=== PATIENT | female | born 1975 | race Asian ===

== ENCOUNTER 2023-08-26 16:02 | Outpatient (AMB) | payer SELFPAY ==
[2023-08-26 16:03] VITALS: BP 110/70; PULSE 85; O2SAT 97; BMI 31.6
--- NOTE | 2023-08-26 16:03 | HO.NEPHOV_ITS ---
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 Recent urine Pro: cr was 2700 and prompted further work up All serologies were negative UA showed no protein PFSH Social History (Updated 08/26/23 @ 16:08 by Nury Good) Alcohol intake: never Patient Tobacco Use Status: Never used Tobacco Use of substances other than those prescribed or required for medical reasons: No Vital Signs 08/26/23 16:03 Height 5 ft 2 in Weight 173 lb BMI 31.6 BP 110/70 Blood Pressure Location Lt brachial Position Sitting Pulse 85 Pulse Source Pulse Oximeter Pulse Oximetry (%) 97 Oxygen Delivery Method Room Air Physical Exam Vital Signs: Last Vital Signs Pulse 85 08/26/23 16:03 BP 110/70 08/26/23 16:03 Pulse Ox 97 08/26/23 16:03 Oxygen Delivery Method Room Air 08/26/23 16:03 BMI result Body Mass Index 31.6 Awake. Comfortable. Neck is supple. Mucosa moist. Lungs bilateral scattered rhonchi. Heart S1-S2 heard no gallop. Abdomen soft. Extremities no edema. No involuntary movements. No myoclonus. 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
== END 2023-08-26 16:28 | disposition home or self-care (01) ==
PROVIDERS: PCP Internal Medicine; Visit Provider Internal Medicine Hypertension Specialist
DX: N05.9 Unspecified nephritic syndrome with unspecified morphologic changes (principal)

== ENCOUNTER → 2023-08-26 16:02 | Outpatient (BNVA) | payer SELFPAY | PROVIDERS: PCP Internal Medicine; Visit Provider Internal Medicine Hypertension Specialist | DX: N05.9 Unspecified nephritic syndrome with unspecified morphologic changes (principal) | CPT/HCPCS: 99211 ==

== ENCOUNTER 2023-08-27 12:11 | Outpatient (REF) | payer OTHER, SELFPAY ==
[2023-08-27 14:57] LABS: Creatinine Urine 18.09 mg/dL; Total Protein Urine Random < 7 mg/dL (<12)
== END 2023-08-27 12:12 | disposition home or self-care (01) ==
LOC: HO.LAB 12:11
PROVIDERS: Visit Provider Internal Medicine Hypertension Specialist
DX: N05.9 Unspecified nephritic syndrome with unspecified morphologic changes (principal)
CPT/HCPCS: 82570; 84156

== ENCOUNTER 2025-02-28 14:32 | Outpatient (AMB) | payer OTHER, SELFPAY ==
--- OUTSIDE RECORDS SUMMARY | 2021-07-04 09:15 | XMS_ITS | Continuity of Care Document ---
Author Organization [facility] Address [address] [place] [address] Phone Care Team Providers Care Content Checker Name Role Phone Sowmya Lainez MD Unavailable Unavailable Allergies, Adverse Reactions, Alerts Substance Reaction Status Criticality gabapentin pain Active No Information Medications Medication Instructions Dosage Effective Dates (start - stop) Status Comments Norvasc 5 mg tablet take 1 tablet by oral route every day 5 MG - No Longer Active lisinopril 2.5 mg tablet take 1 tablet by oral route every day 2.5 MG - No Longer Active gemfibrozil 600 mg tablet take 1 tablet by oral route 2 times every day 30 minutes before morning and evening meal 600 MG - No Longer Active Fish Oil 1,000 mg (120 mg-180 mg) capsule take 1 capsule by oral route every day 1 capsule - No Longer Active Synthroid 75 mcg tablet take 1 tablet by oral route every day 75 MCG - No Longer Active pantoprazole 40 mg tablet,delayed release take 1 tablet by oral route every day 40 MG - No Longer Active ergocalciferol (vitamin D2) 1,250 mcg (50,000 unit) capsule take 1 capsule by oral route every week 1 capsule - No Longer Active Synthroid 75 mcg tablet take 1 tablet by oral route every day 75 MCG - No Longer Active Pantoprazole Sodium 40 MG Oral Tablet Delayed Release Take 1 tablet by mouth once daily - No Longer Active Procedures Procedure Date Screening mammo bilateral 2 view study o f OFFICE/OUTPATIENT VISIT, EST 15 MIN UNLISTED PREVENTIVE SERVICE Brief communication technology-based ser vice Copayment Waived - Telehealth SPECIMEN HANDLING ROUTINE VENIPUNCTURE UNLISTED E&M SERVICE MED LIST DOCD IN [facility] RVW MEDS BY RX/DR IN [facility] OFFICE/OUTPATIENT VISIT, EST 25 MIN Copayment Waived - Annual Physical Cover ed @ 100% MED LIST DOCD IN [facility] RVW MEDS BY RX/DR IN [facility] Alcohol/subs Screening/interv 15-30mn Oc SYST BP LT 130 MM HG DIAST BP < 80 MM HG AMNT PAIN NOTED; PAIN PRSNT AMNT PAIN NOTED; NONE PRSNT OFFICE/OUTPATIENT VISIT, EST 15 MIN Copayment Responsibility A11 A8 D6 B10 PURE TONE HEARING TEST, AIR VISUAL ACUITY SCREEN GLYCATED HEMOGLOBIN A1c TEST Screening mammo bilateral 2 view study o f SYST BP GE 130 - 139MM HG MED LIST DOCD IN [facility] RVW MEDS BY RX/DR IN [facility] AMNT PAIN NOTED; NONE PRSNT DIAST BP 80-89 MM HG OFFICE/OUTPATIENT VISIT, EST 15 MIN Copayment Waived - Annual Physical Cover ed @ 100% A11 A8 D6 B10 SPECIMEN HANDLING ROUTINE VENIPUNCTURE UNLISTED E&M SERVICE OFFICE/OUTPATIENT VISIT, EST 25 MIN Copayment Waived - Telehealth UNLISTED E&M SERVICE ROUTINE VENIPUNCTURE SPECIMEN HANDLING OFFICE/OUTPATIENT VISIT, EST 25 MIN Brief communication technology-based ser vice OFFICE/OUTPATIENT VISIT, EST 25 MIN Copayment Responsibility MED LIST DOCD IN [facility] RVW MEDS BY RX/DR IN [facility] OFFICE/OUTPATIENT VISIT, EST 25 MIN Copayment Responsibility MED LIST DOCD IN [facility] RVW MEDS BY RX/DR IN [facility] OFFICE/OUTPATIENT VISIT, EST 15 MIN UNLISTED PREVENTIVE SERVICE Depression Screening Copayment Responsibility OFFICE/OUTPATIENT VISIT, EST 15 MIN UNLISTED PREVENTIVE SERVICE Depression Screening Copayment Responsibility E3 MED LIST DOCD IN [facility] RVW MEDS BY RX/DR IN [facility] OFFICE/OUTPATIENT VISIT, EST 25 MIN UNLISTED PREVENTIVE SERVICE Copayment Responsibility B2 OFFICE/OUTPATIENT VISIT, EST 15 MIN UNLISTED PREVENTIVE SERVICE Depression Screening Copayment Responsibility UNLISTED E&M SERVICE ROUTINE VENIPUNCTURE SPECIMEN HANDLING OFFICE/OUTPATIENT VISIT, EST 15 MIN TOBACCO NON-USER AMNT PAIN NOTED; PAIN PRSNT SYST BP LT 130 MM HG DIAST BP < 80 MM HG Copayment Responsibility OFFICE/OUTPATIENT VISIT, EST 15 MIN DIAST BP < 80 MM HG TOBACCO NON-USER AMNT PAIN NOTED; NONE PRSNT SYST BP LT 130 MM HG OFFICE/OUTPATIENT VISIT, NEW EXPANDED 20 MIN DIAST BP < 80 MM HG TOBACCO NON-USER AMNT PAIN NOTED; NONE PRSNT SYST BP LT 130 MM HG Advance Directives Directive Yes / No Effective Date File Name No Information Encounters Encounter Description Practice Location Reason(s) For Visit Diagnoses Date Provider Providers Copied on Encounter OFFICE/OUTPA TIENT VISIT, EST 15 MIN [facility], [address], [place], [id number], [place] tel:[phone] [facility] labs (chief complaint) Atypical squamous cells of undetermined significance on cytologic smear of cervix (ASC-US)Hypothyr oidism, unspecifiedVitam in D deficiencyHyperl ipidemia, unspecifiedAnxie tyEssential hypertensionChro grace GERDCervical spine arthritisBone spur of left footLeft leg painMPGN (membranoprolife rative glomerulonephrit ides)Chest pain, unspecified typePelvic pain in femalePrediabete sPreventative health careNon-complian t behavior 2 Fatou Deng. [address] [place] [address], [id number] , [place]. tel: [phone] UNLISTED E&M SERVICE [facility], [address], [place], [id number], [place] tel:[phone] [facility] LABORATORY (chief complaint) Encounter for preprocedural laboratory examination 2 Nurse Visit. [address] [place], [address], [place]. tel: [phone] [facility], [address], [place], [id number], [place] tel:[phone] [facility] Atypical squamous cells of undetermined significance on cytologic smear of cervix (ASC-US) 1 Effie Panda. [address] [place] [address], [id number], [place]. tel:[phone] OFFICE/OUTPA TIENT VISIT, EST 25 MIN [facility], [address] [place] [address], [id number], [place] tel:[phone] [facility] pap exam only (chief complaint) Body mass index (BMI) 31.0-31.9, adultPap smear for cervical cancer screening 1 Effie Panda. [address] [place] [address], [id number], [place]. tel:[phone] OFFICE/OUTPA TIENT VISIT, EST 15 MIN [facility], [address] [place] [address], [id number], [place] tel:[phone] [facility] SKIN Bump/lump (chief complaint) Hypothyroidism, unspecifiedVitam in D deficiencyHyperl ipidemia, unspecifiedAnxie tyEssential hypertensionChro grace GERDCervical spine arthritisBone spur of left footMPGN (membranoprolife rative glomerulonephrit ides)Chest pain, unspecified typePelvic pain in femalePrediabete sPreventative health careBody mass index (BMI) 31.0-31.9, adultEncounter for screening, unspecifiedLeft leg pain 1 Fatou Deng. [address] [place] [address], [id number] , [place]. tel: [facility], [address] [place] [address], [id number], [place] tel:[phone] [facility] Chronic GERD 1 Fatou Deng. [address] [place], [id number] , [place]. tel: [facility], [address] [place] [address], [id number], [place] tel:[phone] [facility] No Information 1 Fatou Deng. [address] [place] [address], [id number] , [place]. tel: [phone] OFFICE/OUTPA TIENT VISIT, EST 15 MIN [facility], [address] [place] [address], [id number], [place] tel:[phone] [facility] Physical/lab s (chief complaint) Body mass index (BMI) 31.0-31.9, adultEncounter for exam of ears and hearing w/o abnormal findingsEncounte r for exam of eyes and vision w/o abnormal findingsHypothyr oidism, unspecifiedVitam in D deficiencyHyperl ipidemia, unspecifiedAnxie tyEssential hypertensionChro grace GERDCervical spine arthritisBone spur of left footMPGN (membranoprolife rative glomerulonephrit ides)Chest pain, unspecified typePelvic pain in femalePrediabete [facility] care Feb- 1 Fatou Deng. [address] [place] [address], [id number] , [place]. tel:[phone] UNLISTED E&M SERVICE [facility], [address] [place] [address], [id number], [place] tel:[phone] [facility] LABORATORY (chief complaint) Encounter for preprocedural laboratory examination Feb- 1 Nurse Visit. [address] [place], [address], [place]. tel: [phone] [facility], [address] [place] [address], [id number], [place] tel:[phone] [facility] No Information 1 Fatou Deng. [address] [place] [address], [id number] , [place]. tel: [phone] [facility], [address] [place] [address], [id number], [place] tel:[phone] [facility] Neck pain 1 Fatou Deng. [address] [place] [address], [id number] , [place]. tel:[phone] OFFICE/OUTPA TIENT VISIT, EST 25 MIN [facility], [address] [place] [address], [id number], [place] tel:[phone] [facility] labs and CS xray (chief complaint) PrediabetesEssen tial hypertensionHype rlipidemia, unspecifiedHypot hyroidism, unspecifiedPreve ntative health careChronic GERDChest pain, unspecified typeCervical spine arthritisMPGN (membranoprolife rative glomerulonephrit ides)Pelvic pain in femaleAnxietyBon e spur of left footVitamin D deficiency Aug- 1 Fatou Deng. [address] [place] [address], [id number] , [place]. tel:[phone] UNLISTED E&M SERVICE [facility], [address] [place] [address], [id number], [place] tel:[phone] [facility] LABORATORY (chief complaint) Encounter for preprocedural laboratory examination 1 Nurse Visit. [address] [place], [address], [place]. tel: [phone] OFFICE/OUTPA TIENT VISIT, EST 25 MIN [facility], [address] [place] [address], [id number], [place] tel:[phone] [facility] Cardiology referral (chief complaint) Chronic GERDEssential hypertensionPrev entative health careMPGN (membranoprolife rative glomerulonephrit ides)Pelvic pain in femaleAnxietyChe st pain, unspecified typeBone spur of left footHyperlipidem ia, unspecifiedBody mass index (BMI) 31.0-31.9, adultHypothyroid ism, unspecifiedVitam in D deficiencyCervic al spine arthritis Fe-0 1 Fatou Deng. [address] [place] [address], [id number] , [place]. tel: [phone] OFFICE/OUTPA TIENT VISIT, EST 25 MIN [facility], [address] [place] [address], [id number], [place] tel:[phone] [facility] (chief complaint) Body mass index (BMI) 31.0-31.9, adultHospital discharge follow-upOther chronic painPelvic pain in femaleEssential hypertensionHype rlipidemia, unspecifiedHypot hyroidism, unspecifiedMPGN (membranoprolife rative glomerulonephrit ides)AnxietyChro grace GERDBone spur of left footVitamin D deficiencyPreven tative health careChest pain, unspecified type Mar- 0 Fatou Deng. [address] [place] [address], [id number] , [place]. tel:[phone] OFFICE/OUTPA TIENT VISIT, EST 25 MIN [facility], [address] [place] [address], [id number], [place] tel:[phone] [facility] Preop (chief complaint) Pre-op evaluationOther chronic painPelvic pain in femaleEssential hypertensionHype rlipidemia, unspecifiedHypot hyroidism, unspecifiedMPGN (membranoprolife rative glomerulonephrit ides)Family history of coronary artery disease occurring prior to 55 years of ageAnxietyChroni c GERDBone spur of left footVitamin D deficiencyPreven tative health care Feb- 0 Fatou Deng. [address] [place] [address], [id number] , [place]. tel:[phone] OFFICE/OUTPA TIENT VISIT, EST 15 MIN [facility], [address] [place] [address], [id number], [place] tel:[phone] [facility] Cardiology referral (chief complaint) Other chronic painPelvic pain in femalePrediabete sEssential hypertensionHype rlipidemia, unspecifiedPreve ntative health careHypothyroidi sm, unspecifiedIron deficiency anemia due to chronic blood lossMPGN (membranoprolife rative glomerulonephrit ides)Family history of coronary artery disease occurring prior to 55 years of ageAnxietyChroni c GERDReactive thrombocytosisBo ne spur of left foot 0 Fatou Deng. [address] [place] [address], [id number] , [place]. tel: OFFICE/OUTPA TIENT VISIT, EST 15 MIN [facility], [address] [place] [address], [id number], [place] tel:[phone] [facility] Menorrhagia (chief complaint)UR I (chief complaint)Ot her Medical issues (chief complaint) Pelvic pain in femaleUpper respiratory tract infection, unspecified typePrediabetesE ssential hypertensionHype rlipidemia, unspecifiedPreve ntative health careHypothyroidi sm, unspecifiedIron deficiency anemia due to chronic blood lossMPGN (membranoprolife rative glomerulonephrit ides)Family history of coronary artery disease occurring prior to 55 years of ageAnxietyChroni c GERDReactive thrombocytosisBo ne spur of left footOther chronic pain 0 Fatou Deng. [address] [place] [address], [id number] , [place]. tel: OFFICE/OUTPA TIENT VISIT, EST 25 MIN [facility], [address] [place] [address], [id number], [place] tel:[phone] [facility] Referral (chief complaint) PrediabetesEssen tial hypertensionFami ly history of coronary artery disease occurring prior to 55 years of agePreventative health careHyperlipidem ia, unspecifiedHypot hyroidism, unspecifiedMPGN (membranoprolife rative glomerulonephrit ides)Iron deficiency anemia due to chronic blood lossPelvic pain in femaleReactive thrombocytosisBo ne spur of left footOther chronic painAnxietyChron ic GERD Fe 0 Fatou Deng. [address] [place] [address], [id number] , [place]. tel: OFFICE/OUTPA TIENT VISIT, EST 15 MIN [facility], [address] [place] [address], [id number], [place] tel:[phone] [facility] Lab Results (chief complaint) Essential hypertensionPred iabetesPreventat iwona health careHyperlipidem ia, unspecifiedHypot hyroidism, unspecifiedIron deficiency anemia due to chronic blood lossPelvic pain in femaleMPGN (membranoprolife rative glomerulonephrit ides)Bone spur of left footOther chronic painReactive thrombocytosisAn xietyFamily history of coronary artery disease occurring prior to 53 years of age 9 Fatou Deng. [address] [place] [address], [id number] , [place]. tel:[phone] UNLISTED E&M SERVICE [facility], [address] [place] [address], [id number], [place] tel:[phone] [facility] BLOOD WORK (chief complaint) Hyperlipidemia, unspecifiedHypot hyroidism, unspecified 9 Nurse Visit[address] [place] [address], [id number], . tel: [phone] OFFICE/OUTPA TIENT VISIT, EST 15 MIN [facility], [address] [place] [address], [id number], [place] tel:[phone] [facility] Anxiety disorder 9 Fatou Deng. [address] [place] [address], [id number] , [place]. tel:[phone] OFFICE/OUTPA TIENT VISIT, EST 15 MIN [facility], [address] [place] [address], [id number], [place] tel:[phone] [facility] No Information 9 Fatou Deng. [address] [place] [address], [id number] , [place]. tel:[phone] OFFICE/OUTPA TIENT VISIT, NEW EXPANDED 20 MIN [facility], [address] [place] [address], [id number], [place] [phone] [facility] Thrombocytosis 9 Fatou Deng. [address] [place], [place], [id number] , [place]. tel:[phone] [facility], [address] [place] [address], [id number], tel:[phone] [facility] Other chronic pain 9 Fatou Deng. [address] [place] [address], [id number] , . tel:[phone] [facility], [address] [place] [address], [id number], tel:[phone] [facility] MPGN (membranoprolife rative glomerulonephrit ides)Family history of coronary artery disease occurring prior to 53 years of age 8 Fatou Deng. [address] [place] [address], [id number] , . tel:[phone] [facility], [address] [place] [address], [id number], tel:[phone] Conversion Location [facility] HyperlipidemiaHy pothyroidEssenti al hypertension 7 Provider Coversion . [address] [place], [address]. tel: [phone] Family History Family Member Type Diagnosis Age At Onset Siblings Problem (finding) 2 brothers - Healthy Mother Problem (finding) Alive Children Problem (finding) 1 sons, 1 daughters - H ealthy Father Problem (finding) Heart Mother Problem (finding) Alive Immunizations Vaccine Date Status Comments FluLaval 4-VALENT administered Note: Give n by: ; Source: Source Unspecified FluVirin administered Note: Given by: ; Source: Source Unspecified Payers Payer name Insurance type Covered democrat ID Authoriza tion(s) [facility] CI [id number] [facility] [place] [id number] Social History Type Description Quantity Date Captured Comments Sex Female Smoking Status No Information Sexual Orientation Straight or heterosexual Gender Identity Female Chief Complaint And Reason For Visit From encounter dated '07/04/2021 13:15'. labs (chief complaint). Description: This is a TeleHealth visit : verbal consent by patient was obtained to conduct visit telephonically. The telephonic encounter takes the place of a face to face encounter. The telephonic visit is due to current clinic guidelines related to COVID-19There is medical necessity due to pt's comorbidities : please see below for more information on PMH Interpretation was not neededTotal time spent : 15 minsThis visit is to review labsPt has a PMH of Essential hypertensionPrediabetes Chest pain (Family history of early CAD) Hypothyroid Hypertriglyceridemia GERDMPGN (membranoproliferative glomerulonephritides) Menorrhagia ASCUS + HPV negative Bone spur of foot Cervical spine pain Vit D deficiency Anxiety disorderNon compliant behavior Reason For Referral Reason For Referral No Information Plan Of Treatment Date Type Action Status Goal Suicide risk ass essment. Due on due Goal PHQ9. Due on due Goal Urinalysis due Goal Lipid panel. Due on 023 due Goal Tdap. Due on due Goal Alcohol/Drug scr eening. Due on due Goal Drug Screening. Due on due Goal ECG due Goal Influenza vaccine. Due on due Goal Complete Physica l Exam. Due on due Goal TB Screening (PP D test). Due on due Goal Depression screening. Due on due Goal COVID19 VACC. Due on 2021 due Goal PAP. Due on due Goal COVID19 VACC (Adult). Due on due Goal PPD (TST). Due on due Goal Alcohol Screening. Due on due Goal Td vaccine. Due on due Goal Pap/HPV testing. Due on due Goal Suicide risk ass essment. Due on due Goal PHQ9. Due on due Goal Alcohol/Drug scr eening. Due on due Goal ECG due Goal Lipid panel. Due on 022 due Goal Urinalysis due Goal Tdap. Due on due Goal Td vaccine. Due on due Goal Alcohol Screening. Due on due Goal Drug Screening. Due on due Goal Pap/HPV testing. Due on due Goal PPD (TST). Due on due Goal Depression screening. Due on due Goal COVID19 VACC. Due on 2021 due Goal Influenza vaccine. Due on due Goal COVID19 VACC (Adult). Due on due Goal TB Screening (PP D test). Due on due Goal PAP. Due on due Goal Complete Physica l Exam. Due on due Goal Drug Screening. Due on due Goal Pap/HPV testing. Due on due Goal Depression screening. Due on due Goal Influenza vaccine. Due on due Goal Tdap. Due on due Goal Alcohol Screening. Due on due Goal PAP. Due on due Goal Complete Physica l Exam. Due on due Goal TB Screening (PP D test). Due on due Goal COVID19 VACC. Due on 2020 due Goal PPD (TST). Due on due Goal ECG due Goal Td vaccine. Due on due Goal Lipid panel. Due on 022 due Goal Urinalysis due Goal Diabetes screening. Due on due Goal PHQ9. Due on due Goal Suicide risk ass essment. Due on due Goal Alcohol/Drug scr eening. Due on due Goal Td vaccine. Due on due Goal Complete Physica l Exam. Due on due Goal Influenza vaccine. Due on No due Goal TB Screening (PP D test). Due on due Goal COVID19 VACC. Due on 2020 due Goal Depression screening. Due on due Goal PAP. Due on due Goal Alcohol Screening. Due on No due Goal Pap/HPV testing. Due on due Goal Suicide risk ass essment. Due on due Goal Alcohol/Drug scr eening. Due on due Goal Diabetes screening. Due on N due Goal ECG due Goal Urinalysis due Goal Lipid panel. Due on due Goal PHQ9. Due on due Goal Tdap. Due on due Goal Drug Screening. Due on due Goal PPD (TST). Due on due Goal COVID19 VACC. Due on 2020 due Goal Pap/HPV testing. Due on due Goal PPD (TST). Due on due Goal Alcohol Screening. Due on due Goal PAP. Due on due Goal Td vaccine. Due on due Goal Drug Screening. Due on due Goal Influenza vaccine. Due on due Goal TB Screening (PP D test). Due on due Goal Complete Physica l Exam. Due on due Goal Tdap. Due on due Goal Depression screening. Due on due Goal Lipid panel. Due on due Goal Urinalysis due Goal ECG due Goal Diabetes screening. Due on O due Goal PHQ9. Due on due Goal Suicide risk ass essment. Due on due Goal Alcohol/Drug scr eening. Due on due Goal Tdap. Due on due Goal PHQ9. Due on due Goal Suicide risk ass essment. Due on due Goal Diabetes screening. Due on O due Goal ECG due Goal Lipid panel. Due on due Goal Urinalysis due Goal Alcohol/Drug scr eening. Due on due Goal COVID19 VACC. Due on 2020 due Goal Mammogram (Scree ranjan); Bilateral. Due on due Goal Depression screening. Due on due Goal Complete Physica l Exam. Due on due Goal Drug Screening. Due on due Goal Td vaccine. Due on due Goal Pap/HPV testing. Due on due Goal Alcohol Screening. Due on Oc due Goal TB Screening (PP D test). Due on due Goal PPD (TST). Due on due Goal Influenza vaccine. Due on Oc due Goal Suicide risk ass essment. Due on due Goal PHQ9. Due on due Goal Diabetes screening. Due on S due Goal Urinalysis due Goal ECG due Goal Lipid panel. Due on due Goal COVID19 VACC. Due on 2020 due Goal Alcohol Screening. Due on due Goal Alcohol/Drug scr eening. Due on due Goal Drug Screening. Due on due Goal Td vaccine. Due on due Goal Mammogram (Scree ranjan); Bilateral. Due on due Goal Influenza vaccine. Due on due Goal Complete Physica l Exam. Due on due Goal Pap/HPV testing. Due on due Goal PPD (TST). Due on due Goal Tdap. Due on due Goal TB Screening (PP D test). Due on due Goal Depression screening. Due on due Goal Suicide risk ass essment. Due on due Goal PHQ9. Due on due Goal Alcohol/Drug scr eening. Due on due Goal Urinalysis due Goal ECG due Goal Lipid panel. Due on 022 due Goal Drug Screening. Due on due Goal COVID19 VACC. Due on 2020 due Goal Alcohol Screening. Due on due Goal PPD (TST). Due on due Goal Complete Physica l Exam. Due on due Goal Depression screening. Due on due Goal Pap/HPV testing. Due on due Goal TB Screening (PP D test). Due on due Goal Tdap. Due on due Goal Influenza vaccine. Due on due Goal Td vaccine. Due on due Goal Mammogram (Scree ranjan); Bilateral. Due on due Goal PAP. Due on due Goal TB Screening (PP D test). Due on due Goal Diabetes screening. Due on A due Goal ECG due Goal Lipid panel. Due on due Goal PPD (TST). Due on due Goal PAP. Due on due Goal Pap/HPV testing. Due on due Goal Mammogram (Scree ranjan); Bilateral. Due on due Goal Depression screening. Due on due Goal Complete Physica l Exam. Due on due Goal Tdap. Due on due Goal Td vaccine. Due on due Goal Urinalysis. Due on due Goal Influenza vaccine. Due on due Goal Td vaccine. Due on due Goal TB Screening (PP D test). Due on due Goal Tdap. Due on due Goal Complete Physica l Exam. Due on due Goal Diabetes screening. Due on due Goal Urinalysis. Due on due Goal Lipid panel. Due on due Goal Depression screening. Due on due Goal ECG due Goal PAP. Due on due Goal Pap/HPV testing. Due on due Goal Influenza vaccine. Due on due Goal Mammogram (Scree ranjan); Bilateral. Due on due Goal PPD (TST). Due on due Goal Complete Physica l Exam. Due on due Goal Tdap. Due on due Goal Td vaccine. Due on due Goal Influenza vaccine. Due on due Goal Mammogram (Scree ranjan); Bilateral. Due on due Goal TB Screening (PP D test). Due on due Goal Diabetes screening. Due on due Goal ECG due Goal Urinalysis. Due on due Goal Pap/HPV testing. Due on due Goal PAP. Due on due Goal PPD (TST). Due on due Goal Depression screening. Due on due Goal Diabetes screening. Due on due Goal ECG due Goal Urinalysis. Due on due Goal Mammogram (Scree ranjan); Bilateral. Due on due Goal TB Screening (PP D test). Due on due Goal Complete Physica l Exam. Due on due Goal Depression screening. Due on due Goal Influenza vaccine. Due on due Goal Pap/HPV testing. Due on due Goal Td vaccine. Due on due Goal Tdap. Due on due Goal PPD (TST). Due on due Goal PAP. Due on due Goal Influenza vaccine. Due on Oc due Goal Complete Physica l Exam. Due on due Goal Depression screening. Due on due Goal PPD (TST). Due on 0 due Goal PAP. Due on due Goal Pap/HPV testing. Due on due Goal Td vaccine. Due on 20 due Goal Mammogram (Scree ranjan); Bilateral. Due on due Goal TB Screening (PP D test). Due on due Goal Diabetes screening. Due on O ct due Goal ECG due Goal Tdap. Due on due Goal Diabetes screening. Due on S ep due Goal ECG due Goal Tdap. Due on due Goal Influenza vaccine. Due on due Goal Depression screening. Due on due Goal Pap/HPV testing. Due on due Goal Complete Physica l Exam. Due on due Goal PPD (TST). Due on 0 due Goal PAP. Due on due Goal Td vaccine. Due on due Goal Mammogram (Scree ranjan); Bilateral. Due on due Goal TB Screening (PP D test). Due on due Goal Diabetes screening. Due on due Goal ECG due Goal Influenza vaccine. Due on due Goal Tdap. Due on due Goal Pap/HPV testing. Due on due Goal Complete Physica l Exam. Due on due Goal PPD (TST). Due on 0 due Goal Td vaccine. Due on due Goal PAP. Due on due Goal Depression screening. Due on due Goal Mammogram (Scree ranjan); Bilateral. Due on due Goal TB Screening (PP D test). Due on due Goal Diabetes screening. Due on A due Goal ECG. Due on due Goal Influenza vaccine. Due on Ap due Goal Pap/HPV testing. Due on due Goal PAP. Due on due Goal Tdap. Due on due Goal Complete Physica l Exam. Due on due Goal PPD (TST). Due on 0 due Goal Td vaccine. Due on due Goal Depression screening. Due on due Goal Mammogram (Scree ranjan); Bilateral. Due on due Goal TB Screening (PP D test). Due on due Goal Influenza vaccine. Due on due Goal Diabetes screening. Due on due Goal ECG. Due on due Goal Tdap. Due on due Goal Complete Physica l Exam. Due on due Goal Pap/HPV testing. Due on due Goal PPD (TST). Due on 0 due Goal PAP. Due on due Goal Td vaccine. Due on due Goal Depression screening. Due on due Goal TB Screening (PP D test). Due on due Goal Mammogram (Scree ranjan); Bilateral. Due on due Goal Diabetes screening. Due on due Goal ECG. Due on due Goal PAP. Due on due Goal Td vaccine. Due on 19 due Goal Complete Physica l Exam. Due on due Goal Tdap. Due on due Goal PPD (TST). Due on 9 due Goal Pap/HPV testing. Due on due Goal Depression screening. Due on due Goal Mammogram (Scree ranjan); Bilateral. Due on due Goal TB Screening (PP D test). Due on due Goal Diabetes screening. Due on due Goal Urinalysis. Due on 19 due Goal Lipid panel. Due on 019 due Goal Td vaccine. Due on 19 due Goal PAP. Due on due Goal PPD (TST). Due on 9 due Goal Depression screening. Due on due Goal Pap/HPV testing. Due on due Goal Tdap. Due on due Goal ECG. Due on due Goal Complete Physica l Exam. Due on due Goal TB Screening (PP D test). Due on due Goal Mammogram (Scree ranjan); Bilateral. Due on due Goal Influenza vaccine. Due on due Referral Ordered: X-RAY EXAM OF FOOT 3+VIEW Bilateral ordered Referral Ordered: X-RAY EXAM OF LOWER SPINE 2-3 VIEWS ordered Referral Ordered: US DOPPLER EXTREMITY VENOUS UNI Left leg ordered Referral Ordered: Gastroenterology (related to Chronic GERD) ordered Referral Ordered: Referrals: Gastroenterology. Evaluate and treat ordered Referral Ordered: Cardiology (related to Chest pain, unspecified type) ordered Referral Ordered: X-RAY EXAM OF NECK SPINE 2-3 VIEW ordered Referral Ordered: Cardiology (related to Chest pain, unspecified type) ordered Referral Ordered: Referrals: Cardiology. Consult ordered Referral Ordered: Cardiology (related to Family history of coronary artery disease occurring prior to 55 years of age) ordered Referral Ordered: Referrals: Cardiology. Follow-up and treat ordered Referral Ordered: CHEST X-RAY AP (Single View) ordered Referral Ordered: Gynecology (related to Pelvic pain in female) ordered Referral Ordered: Referrals: Gynecology. Evaluate and treat ordered Referral Ordered: Gynecology (related to Pelvic pain in female) ordered Referral Ordered: US EXAM, PELVIC, COMPLETE ordered Referral Ordered: Referrals: Gynecology. Follow-up and treat ordered Future Order: Lab Order Vitamin D, 25-Hydroxy (2008), Ordered on: Ordered Future Order: Lab Order Rheumato id Factor (RF) (6016), Ordered on: Ordered Future Order: Lab Order Lupus Co mprehensive Reflexive Panel(*AR*) ([id number]), Ordered on: Ordered Future Order: Lab Order Cyclic C itrullinated Peptide (CCP) Antibody, IgG (6032), Ordered on: Ordered Future Order: Lab Order Hemoglob in A1C w/ calculated Mean Plasma Glucose (MPG) (2039), Ordered on: Ordered Future Order: Lab Order Lipid Pa rafael (144), Ordered on: Ordered Future Order: Lab Order Comprehe nsive Metabolic Panel (CMP) w/ eGFR (111), Ordered on: Ordered Future Order: Lab Order Iron/TIB C ([id number]), Sent on: Sent Future Order: Lab Order HEMOGLOB IN A1C ([id number]), Sent on: Sent Future Order: Lab Order Vitamin B12 ([id number]), Sent on: Sent Future Order: Lab Order T4 FREE ([id number] ), Sent on: Sent Future Order: Lab Order UA w/ NE CONSTRUCTION PROJECT COORDINATOR ([id number]), Sent on: Sent Future Order: Lab Order TSH ([id number]), S ent on: Sent Future Order: Lab Order HEPATITI S PANEL ([id number]), Sent on: Sent Future Order: Lab Order HIV SCRE EN ([id number]), Sent on: Sent Future Order: Lab Order FERRITIN ([id number]), Sent on: Sent Future Order: Lab Order CBC with Diff ([id number]), Sent on: Sent Future Order: Lab Order Vitamin D, 25-Hydroxy ([id number]), Sent on: Sent Future Order: Lab Order MICROALB UMIN ([id number]), Sent on: Sent Future Order: Lab Order LIPID PA RAFAEL ([id number]), Sent on: Sent Future Order: Lab Order CMP ([id number]), S ent on: Sent Future Order: Lab Order Ferritin , Serum (2028), Ordered on: Ordered Future Order: Lab Order TIBC [place] el: Iron, UIBC and % Saturation (170), Ordered on: Ordered Future Order: Lab Order HEMOGLOB IN A1C ([id number]), Sent on: Sent Future Order: Lab Order Vitamin B12 ([id number]), Sent on: Sent Future Order: Lab Order CBC with Diff ([id number]), Sent on: Sent Future Order: Lab Order MICROALB UMIN ([id number]), Sent on: Sent Future Order: Lab Order CMP ([id number]), S ent on: Sent Future Order: Lab Order LIPID PA RAFAEL ([id number]), Sent on: Sent Future Order: Lab Order T4 FREE ([id number] ), Sent on: Sent Future Order: Lab Order UA w/ NE CONSTRUCTION PROJECT COORDINATOR ([id number]), Sent on: Sent Future Order: Lab Order TSH ([id number]), S ent on: Sent Future Order: Lab Order COMPREHE NSIVE METABOLIC PANEL ([id number]), Ordered on: Ordered Future Order: Lab Order CBC (Inc ludes Differential] (6399), Ordered on: Ordered Future Order: Lab Order HEMOGLOB IN A1C (496), Ordered on: Ordered Future Order: Lab Order LIPID PA RAFAEL ([id number]), Ordered on: Ordered Future Order: Lab Order URINALYS IS COMPLETE (5463), Collected on: Ordered Future Order: Lab Order TSH 3RD GENERATION W/REFLEX TO FT4 ([id number]), Collected on: Ordered History Of Present Illness Encounter Date Complaint History Of Prese nt Illness labs This is a TeleHe alth visit : verbal consent by patient was obtained to conduct visit telephonically. The telephonic encounter takes the place of a face to face encounter. The telephonic visit is due to current clinic guidelines related to COVID-19There is medical necessity due to pt's comorbidities : please see below for more information on PMH Interpretation was not neededTotal time spent : 15 minsThis visit is to review labsPt has a PMH of Essential hypertensionPrediabetes Chest pain (Family history of early CAD) Hypothyroid Hypertriglyceridemia GERDMPGN (membranoproliferative glomerulonephritides) Menorrhagia ASCUS + HPV negative Bone spur of foot Cervical spine pain Vit D deficiency Anxiety disorderNon compliant behavior LABORATORY pap exam only This is a patien t of Dr Lainez coming to the clinic for pap exam... pt denies concerns at this time SKIN Bump/lump This is a walk i n This is a walk in ~Pt reports pain behind her left knee x days as well as noticed bruising ~on exam : TTP behind the knee, bruising noted ~pt referred for a venous US of the legs ~pt reports if pain worsens, or she develops SOB/CP to go to the ER Pt has a PMH of Essential hypertensionPrediabetes Chest pain (Family history of early CAD) Hypothyroid Hypertriglyceridemia GERDMPGN (membranoproliferative glomerulonephritides) Menorrhagia Bone spur of foot Cervical spine pain Vit D deficiency Anxiety disorder Physical/labs Pt here for a Ph ysical and lab review Pt has a PMH of Essential hypertensionPrediabetes Chest pain (Family history of early CAD) Hypothyroid Hypertriglyceridemia GERDMPGN (membranoproliferative glomerulonephritides) Menorrhagia Bone spur of foot Cervical spine pain Vit D deficiency Anxiety disorder LABORATORY labs and CS xray This is a TeleH ealth visit : verbal consent by patient was obtained to conduct visit telephonically. The telephonic encounter takes the place of a face to face encounter. The telephonic visit is due to current clinic guidelines related to COVID-19There is medical necessity due to pt's comorbidities : please see below for more information on PMH No Interpretation was neededTotal time spent : 15 minsThis visit is to review labs and neck x-ray, x-ray report not available, records requested Pt has a PMH of Essential hypertensionPrediabetes Chest pain (Family history of early CAD) Hypothyroid Hypertriglyceridemia GERDMPGN (membranoproliferative glomerulonephritides) Menorrhagia Bone spur of foot Cervical spine pain Vit D deficiency Anxiety disorder LABORATORY BLOOD WORK AND U RINE [facility] LABORATORYSPECIMEN DROP OFF- STOOL - HPYLORI ALSO SENT TO [facility] Cardiology referral This is a [facility] visit : verbal consent by patient was obtained to conduct visit telephonically. The telephonic encounter takes the place of a face to face encounter. The telephonic visit is due to current clinic guidelines related to COVID-19There is medical necessity due to pt's comorbidities : please see below for more information on PMH No Interpretation was neededTotal time spent : 10 minsPt is requesting a referral back to Dr Miller as her Insurance changed, states she was last seen in . Pt reports worsening GERD symptoms 3. Pt reports worsening neck pain Pt has a PMH of Essential hypertensionChest pain (Family history of early CAD) Hypothyroid Hyperlipidemia GERDMPGN (membranoproliferative glomerulonephritides) Menorrhagia Bone spur of foot Cervical spine pain Vit D deficiency Anxiety disorder C Pt was in [facility] I N 03/2020 for chest pain/tightness not relieved by NTGBP was elevated 146/81CXR : wnl EKG : documented as NSR Troponin negative D-dimer negative Pt was dced with a diagnosis of Unspecified Chest pain and Anxiety Pt has a PMH of Essential hypertensionChest pain (Family history of early CAD) Hypothyroid Hyperlipidemia MPGN (membranoproliferative glomerulonephritides) Menorrhagia Bone spur of foot Other chronic pain Vit D deficiency Anxiety disorder Preop Pt is scheduled for a Hysteroscopy with dilation an curettage due to Abnormal Uterine and Vaginal bleeding with DR Amarilys Kinney on 03/08Pt has a PMH of Essential hypertensionFamily history of early CAD Hypothyroid Hyperlipidemia MPGN (membranoproliferative glomerulonephritides) Menorrhagia Bone spur of foot Other chronic pain Vit D deficiency Anxiety disorder Cardiology referral This is a wa lk in for cardiology referral for a f/up, previously seen by Dr Johnson : pt has a FH of early CAD she currently denies any symptoms Pt has a PMH of Prediabetes Essential hypertensionFamily history of early CAD Hypothyroid Hyperlipidemia MPGN (membranoproliferative glomerulonephritides) Menorrhagia Bone spur of foot Other chronic pain Thrombocytosis Anxiety disorder Calcium oxalate crystals in urine Other Medical issues Pt has a PM H of Menorrhagia Prediabetes Essential hypertensionFamily history of early CAD Hypothyroid Hyperlipidemia -MPGN (membranoproliferative glomerulonephritides) Bone spur of foot -Other chronic pain Thrombocytosis Anxiety disorder Calcium oxalate crystals in urine Menorrhagia Onset: gradual. Severity level is moderate clot(s). Duration is 1 Week. The problem is no change. Denies aggravating factors. Denies relieving factors. Associated symptoms include dizziness and fatigue. Pertinent negatives include abdominal pain. Additional information: Pt reports heavy periods for 1 week, Minimal relief with Provera and she has an appointment to see [facility] in 10/2019. URI The symptoms beg an 1 week ago. The symptoms have improved. The patient presents with fatigue, generalized weakness and sore throat. The patient does not present with abdominal pain, chills, cough or fever. She denies a history of sick contacts and travel. The patient had a response to rest. Additional information: Pt reports URI symptoms of fever to 101, Myalgias x 1 week, Pt states her symptoms have improved and she only has a sore-throat as at time : symptomatic management advised. Referral This is a walk i n for a referral to [facility] and for a Pelvic US due to an insurance change Pt has a PMH of Prediabetes -Essential hypertensionFamily history of early CAD - Hypothyroid Hyperlipidemia - MPGN (membranoproliferative glomerulonephritides) Bone spur of foot -Other chronic pain Thrombocytosis Anxiety disorder Calcium oxalate crystals in urin3 Lab Results Pt here to f/u l abs Pt has a PMH of Prediabetes -Essential hypertensionFamily history of early CAD - Hypothyroid Hyperlipidemia - MPGN (membranoproliferative glomerulonephritides) Bone spur of foot -Other chronic pain Thrombocytosis Anxiety disorder Calcium oxalate crystals in urin BLOOD WORK BLOOD/URINE MAXWELL ECTED Functional Status Date Functional Assessmen t No Information Instructions Date Instruction Additional Infor mation No Information Assessments Type Assessment Date assessment Atypical squamous ce lls of undetermined significance on cytologic smear of cervix (ASC-US) assessment Hypothyroidism, unspecified impression ~controlled ~c/w synthroid 75mcg . assessment Vitamin D deficiency impression ~on ergocal.. assessment Hyperlipidemia, unspecified impression ~controlled~on gemfibrozil 600mg bid and fish oil qd assessment Anxiety impression pt declines a referral to ... assessment Essential hypertension impression ~On Norvasc 5mg and Lisinopril 2.5mg~ankle edema on higher dose of Norvasc ~ on Lisinopril as per nephro recommendations assessment Chronic GERD impression ~Uncontrolled on Camarena toprazole 40mg ~ H.pylori negative ~ referred for an EGD with DR Rodriguez assessment Cervical spine arthritis 2021 impression ~Pt c/o neck pain ra diating down her arms~ on Tylenol ES as (ibuprofen 800mg caused rectal bleed) and gabapentin 300mg qd. ~Neck x-rays wnl ~Pt referred for an MRI but she declined stating her pain is controlled with Gabapentin assessment Bone spur of left foot impression noted on left foot x-ray, on faustino apentin prn and Tylenol. assessment Left leg pain impression ~Pt reported pain be hind her left knee x days as well as noticed bruising ~on exam : TTP behind the knee, bruising noted ~Pt rates pain between a 1-2 ~ venous US of the legs done in 2020 : wnl ~pt now reports pain in her back radiating down the legs and in both feet : pt referred for x-rays~screen for arthritides assessment MPGN (membranoproliferative glom erulonephritides) impression ~Pt has been off pre dnisone since 2014, ~Pt f/u in [place] once a year: with her [facility] Radiology, on lisinopril 2.5mg assessment Chest pain, unspecified type Jun impression ~f/u with Dr Miller. assessment Pelvic pain in female impression ~Pelvic US in 2019: mild non-specific heterogenicity which would be normal variant vs adenomyosis vs small indistinct fibroids, Nabothian cysts in cervix, endometrial hyperplasia ~Pt is s/p for a Hysteroscopy with dilation and curettage due to Abnormal Uterine and Vaginal bleeding with DR Amarilys Kinney in 02/2020. assessment Prediabetes impression Lifestyle modification advised J assessment Preventative health care 2021 impression ~HIV/Hepatitis negat iwona ~pap in 2020~ mammo in 03/2019,referred for another impression Noted on pap done in 2020 ~pt re ferred to [facility] assessment Non-compliant behavior impression Non compliant with utilization o f referrals Patient Care Teams Name Effective Dates (start - stop) Status Members No Information
--- OUTSIDE RECORDS SUMMARY | 2021-07-04 17:15 | XMS_ITS | Continuity of Care Document ---
Author Organization [facility] ([facility]) Care Team Providers Care Imaging Administrator Name Role Phone Sowmya Lainez MD Primary Care Physician [phone] Encounters Encounter Type Service Location Arrival/Admit Date Discharge/Depart Date Discharge Disposition Informant Office or other outpatient consultation for a new or established patient, 20 mins or more, which requires a medically appropriate history and/or examination and straightforward medical decision making. - 05/23/2021 22:22:00 PDT - - [facility] [place] Office or other outpatient consultation for a new or established patient, 20 mins or more, which requires a medically appropriate history and/or examination and straightforward medical decision making. - 06/27/2021 17:30:00 PDT - - [facility] [place] Office or other outpatient consultation for a new or established patient, 20 mins or more, which requires a medically appropriate history and/or examination and straightforward medical decision making. - 07/04/2021 21:15:00 PDT - - [facility] [place] Office or other outpatient consultation for a new or established patient, 20 mins or more, which requires a medically appropriate history and/or examination and straightforward medical decision making. - 06/12/2021 20:57:00 PDT - - [facility] [place] Office or other outpatient consultation for a new or established patient, 20 mins or more, which requires a medically appropriate history and/or examination and straightforward medical decision making. - 04/12/2021 00:08:00 PDT - - [facility] [place] Office or other outpatient consultation for a new or established patient, 20 mins or more, which requires a medically appropriate history and/or examination and straightforward medical decision making. - 04/12/2021 21:29:00 PDT - - [facility] [place] Office or other outpatient consultation for a new or established patient, 20 mins or more, which requires a medically appropriate history and/or examination and straightforward medical decision making. - 05/09/2021 21:00:00 PDT - - [facility] [place] Office or other outpatient consultation for a new or established patient, 20 mins or more, which requires a medically appropriate history and/or examination and straightforward medical decision making. - 03/05/2021 16:15:00 PDT - - [facility] [place] Office or other outpatient consultation for a new or established patient, 20 mins or more, which requires a medically appropriate history and/or examination and straightforward medical decision making. - 03/14/2021 21:30:00 PDT - - [facility] [place] Office or other outpatient consultation for a new or established patient, 20 mins or more, which requires a medically appropriate history and/or examination and straightforward medical decision making. - 09/22/2020 18:51:00 PDT - - [facility] [place] Office or other outpatient consultation for a new or established patient, 20 mins or more, which requires a medically appropriate history and/or examination and straightforward medical decision making. - 08/30/2020 18:02:00 PDT - - [facility] [place] Office or other outpatient consultation for a new or established patient, 20 mins or more, which requires a medically appropriate history and/or examination and straightforward medical decision making. - 09/04/2020 18:00:00 PDT - - [facility] [place] Office or other outpatient consultation for a new or established patient, 20 mins or more, which requires a medically appropriate history and/or examination and straightforward medical decision making. - 09/14/2020 23:17:00 PDT - - [facility] [place] Office or other outpatient consultation for a new or established patient, 20 mins or more, which requires a medically appropriate history and/or examination and straightforward medical decision making. - 12/12/2020 00:00:00 PDT - - [facility] [place] Office or other outpatient consultation for a new or established patient, 20 mins or more, which requires a medically appropriate history and/or examination and straightforward medical decision making. - 06/26/2020 22:53:00 PDT - - [facility] [place] Office or other outpatient consultation for a new or established patient, 20 mins or more, which requires a medically appropriate history and/or examination and straightforward medical decision making. - 07/27/2020 22:16:00 PDT - - [facility] [place] Problem List Start Date End Date Condition Code Condition Name Condition Text Problem Category Problem Text Status Informant - - R73.03 Prediabetes [facility] - - Z68.31 Body mass index (BMI) 31.0-31.9, adult Body mass index (BMI) 31.0-31.9, adult - encounte [facility] - - E78.5 Hyperlipidemia , unspecified Hyperlipidemi a, unspecified - [facility] - - E55.9 Vitamin D deficiency Vitamin D deficiency - [facility] - - K21.9 Chronic GERD Chronic G[facility] - 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) MPGN (membranoprol iferative glomeruloneph ritides) - [facility] - - Z00.00 Preventative health care Preventative health care - [facility] - - M77.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 Bone spur of left foot - [facility] - - I10 Essential hypertension Essential hypertension - [facility] - - E03.9 Hypothyroidism , unspecified Hypothyroidis m, unspecified - [facility] - - M47.812 Cervical spine arthritis Cervical spine arthritis - [facility] - - R07.9 Chest pain, unspecified type Chest pain, unspecified type - [facility] - - F41.9 Anxiety Anxiety - [facility] - - R10.2 Pelvic pain in female Pelvic pain in female - [facility] History of medication use Effective Period Medication Code Medication Name Dosage Activity Status Info rmant 05/05/2024 08:00:00 PDT [id number] NITROFURANTN CAP 100MG 14 EA Prescribed completed [facility] 05/05/2024 08:00:00 PDT [id number] GABAPENTIN CAP 300MG 90 EA Prescribed completed [facility] 05/05/2024 08:00:00 PDT [id number] LEVOTHYROXIN TAB 88MCG 90 EA Prescribed completed [facility] 07/15/2023 08:00:00 PDT [id number] LISINOPRIL TAB 2.5MG 90 EA Prescribed completed [facility] 05/05/2024 08:00:00 PDT [id number] LEVOTHYROXIN TAB 88MCG 90 EA Prescribed completed [facility] 03/01/2024 07:00:00 PDT [id number] ROSUVASTATIN TAB 10MG 90 EA Prescribed completed [facility] 03/01/2024 07:00:00 PDT [id number] ASPIRIN LOW TAB 81MG EC 90 EA Prescribed completed [facility] 07/15/2023 08:00:00 PDT [id number] LEVOTHYROXIN TAB 88MCG 90 EA Prescribed completed [facility] 07/15/2023 08:00:00 PDT [id number] LISINOPRIL TAB 2.5MG 90 EA Prescribed completed [facility] 07/15/2023 08:00:00 PDT [id number] AMLODIPINE TAB 5MG 90 EA Prescribed completed [facility] 01/21/2024 07:00:00 PDT [id number] CYCLOSPORINE EMU 0.05% OP 60 EA Prescribed completed [facility] 07/15/2023 08:00:00 PDT [id number] FENOFIBRATE TAB 145MG 90 EA Prescribed completed [facility] 07/15/2023 08:00:00 PDT [id number] ASPIRIN LOW TAB 81MG EC 90 EA Prescribed completed [facility] 07/15/2023 08:00:00 PDT [id number] AZITHROMYCIN TAB 250MG 6 EA Prescribed completed [facility] 07/15/2023 08:00:00 PDT [id number] ASPIRIN LOW TAB 81MG EC 90 EA Prescribed completed [facility] 12/24/2023 07:00:00 PDT [id number] ERYTHROMYCIN OIN 5MG/GM 3.5 GM Prescribed completed [facility] 12/11/2022 07:00:00 PDT [id number] LISINOPRIL TAB 2.5MG 90 EA Prescribed completed [facility] 12/11/2022 07:00:00 PDT [id number] LEVOTHYROXIN TAB 88MCG 90 EA Prescribed completed [facility] 12/11/2022 07:00:00 PDT [id number] FENOFIBRATE TAB 145MG 90 EA Prescribed completed [facility] 12/11/2022 07:00:00 PDT [id number] AMLODIPINE TAB 5MG 90 EA Prescribed completed [facility] 12/11/2022 07:00:00 PDT [id number] LISINOPRIL TAB 2.5MG 90 EA Prescribed completed [facility] 12/11/2022 07:00:00 PDT [id number] ROSUVASTATIN TAB 10MG 90 EA Prescribed completed [facility] 07/04/2021 08:00:00 PDT [id number] pantoprazole 40 MG Delayed Release Oral Tablet - Reported completed [facility] 07/04/2021 08:00:00 PDT [id number] amlodipine 5 MG Oral Tablet [Norvasc] - Reported completed [facility] 07/04/2021 08:00:00 PDT [id number] ergocalciferol 1.25 MG Oral Capsule - Reported completed [facility] 04/11/2021 07:00:00 PDT [id number] levothyroxine sodium 0.075 MG Oral Tablet [Synthroid] - Reported completed [facility] 07/04/2021 08:00:00 PDT - Fish Oil 1,000 mg (120 mg-180 mg) capsule - Reported completed [facility] 07/04/2021 08:00:00 PDT [id number] gemfibrozil 600 MG Oral Tablet - Reported completed [facility] 07/04/2021 08:00:00 PDT [id number] levothyroxine sodium 0.075 MG Oral Tablet [Synthroid] - Reported [facility] 12/11/2020 07:00:00 PDT [id number] pantoprazole 40 MG Delayed Release Oral Tablet - Reported completed [facility] 07/04/2021 08:00:00 PDT [id number] lisinopril 2.5 MG Oral Tablet - Reported completed [facility] Relevant diagnostic tests and/or laboratory data Effective DateTime Start Observation Code Observation Name Status Result Value Reference Range Informant 05/09/2021 08:00:00 PDT - HPV High Risk, Probe off pap completed Negative Negative [facility] 05/09/2021 08:00:00 PDT - AP Results completed 0 000 See note - not provided [facility] 03/05/2021 07:00:00 PDT - Cholesterol, Total completed 150 mg/dL <200.0 [facility] 03/05/2021 07:00:00 PDT - Triglycerides completed 187 mg/dL <150.0 [facility] 03/05/2021 07:00:00 PDT - HDL, Cholesterol completed 43.9 mg/dL >40.0 [facility] nstitute 03/05/2021 07:00:00 PDT - CHOL/HDL Ratio (Calc) completed 3.42 Ratio <5.60 [facility] 03/05/2021 07:00:00 PDT - LDL (Calc) completed 68.7 mg/dL <130.0 [facility] 03/05/2021 07:00:00 PDT - VLDL (Calc) completed 37.4 mg/dL <40.0 [facility] 03/05/2021 07:00:00 PDT - Cardiac Risk Factor (LDL/HDL) (Calc) completed 1.56 Ratio 3.03-5.37 [facility] 03/05/2021 07:00:00 PDT - Thyroid Stimulating Hormone (TSH) completed 3.128 uIU/mL 0.340-4.780 [facility] 03/05/2021 07:00:00 PDT - T4, Free completed 0.97 ng/dL 0.87-1.44 [facility] 03/05/2021 07:00:00 PDT - Hemoglobin A1c completed 6.1 % 3.9-5.7 [facility] 03/05/2021 07:00:00 PDT - Mean Plasma Glucose comple diana 140 mg/dL [facility] 03/05/2021 07:00:00 PDT - Vitamin D, 25 Hydroxy completed 16.7 ng/mL 30.0-100.0 [facility] 03/05/2021 07:00:00 PDT - Sodium completed 140 mmol/L 133.0-144.0 [facility] 03/05/2021 07:00:00 PDT - Potassium completed 4.1 mmol/L 3.5-5.1 [facility] 03/05/2021 07:00:00 PDT - Chloride completed 108 mmol/L 97.0-109.0 [facility] 03/05/2021 07:00:00 PDT - Carbon Dioxide completed 22.8 mmol/L 15.3-40.2 [facility] 03/05/2021 07:00:00 PDT - Anion Gap (Calc) completed 13.3 mmol/L 0.0-25.0 [facility] 03/05/2021 07:00:00 PDT - Calcium completed 8.6 mg/dL 8.6-10.8 [facility] 03/05/2021 07:00:00 PDT - Glucose, Fasting completed 103 mg/dL 70.0-99.0 [facility] 03/05/2021 07:00:00 PDT - Alkaline Phosphatase, Serum completed 113 U/L 46.0-116.0 [facility] 03/05/2021 07:00:00 PDT - Total Protein, Serum completed 6.9 g/dL 5.4-8.4 [facility] 03/05/2021 07:00:00 PDT - Albumin, Serum completed 4.6 g/dL 3.5-5.7 [facility] 03/05/2021 07:00:00 PDT - Globulin (Calc) completed 2.3 g/dL 1.8-5.0 [facility] 03/05/2021 07:00:00 PDT - A/G Ratio (Calc) completed 2 Ratio 1.20-2.40 [facility] 03/05/2021 07:00:00 PDT - Bilirubin, Total completed 0.4 mg/dL 0.3-1.1 [facility] 03/05/2021 07:00:00 PDT - AST (SGOT) completed 18 U/L 14.0-53.0 [facility] 03/05/2021 07:00:00 PDT - ALT (SGPT) completed 12 U/L 10.0-72.0 [facility] 03/05/2021 07:00:00 PDT - Urea Nitrogen (BUN) completed 12 mg/dL 9.0-23.0 [facility] 03/05/2021 07:00:00 PDT - Creatinine, Serum completed 0.81 mg/dL 0.55-1.02 [facility] 03/05/2021 07:00:00 PDT - BUN/Creat Ratio (Calc) completed 14.8 Ratio 6.0-42.0 [facility] 03/05/2021 07:00:00 PDT - Osmolality (Calc) completed 279.41 mOsm/kg 275.00-295.00 [facility] 03/05/2021 07:00:00 PDT - eGFR (Calc) NonAfrican Kosovan completed 75.7 mL/min/1.73m\ S\2 >60.0 [facility] 03/05/2021 07:00:00 PDT - eGFR (Calc) completed 91.6 mL/min/1.73m\ S\2 >60.0 [facility] 09/04/2020 07:00:00 PDT - Thyroid Stimulating Hormone (TSH) completed 3.4 uIU/mL 0.550-4.780 [facility] 09/04/2020 07:00:00 PDT - Hepatitis A Ab, Total completed Reactive Non-Reactive [facility] 09/04/2020 07:00:00 PDT - Hepatitis A Ab, IgM completed Non-Reactive Non-Reactive [facility] 09/04/2020 07:00:00 PDT - Hepatitis B core Ab, Total completed Non-Reactive Non-Reactive [facility] 09/04/2020 07:00:00 PDT - Hepatitis B core Ab, IgM completed Non-Reactive Non-Reactive [facility] 09/04/2020 07:00:00 PDT - Hepatitis B surface Ab, Quant completed 3.1 mIU/mL <10.0 [facility] 09/04/2020 07:00:00 PDT - Hepatitis B surface Ag completed Non-Reactive Non-Reactive [facility] 09/04/2020 07:00:00 PDT - Hepatitis C Ab completed Non-Reactive Non-Reactive [facility] 09/04/2020 07:00:00 PDT - Hepatitis C Index Value completed 0.14 Index <1.00 [facility] 09/04/2020 07:00:00 PDT - Uric Acid completed 5.5 mg/dL 3.1-7.8 [facility] te 09/04/2020 07:00:00 PDT - Vitamin B12 completed 296 pg/mL 211.0-911.0 [facility] Insti tute 09/04/2020 07:00:00 PDT - Vitamin D, 25 Hydroxy completed 14.6 ng/mL 30.0-100.0 [facility] 09/04/2020 07:00:00 PDT - H. Pylori Ag, Stool completed Negative Negative [facility] 09/04/2020 07:00:00 PDT - Microalbumin, Random Urine completed 7.7 mg/dL <2.0 [facility] 09/04/2020 07:00:00 PDT - White Blood Cell completed 6.85 10\S\3/uL 4.37-9.68 [facility] 09/04/2020 07:00:00 PDT - Red Blood Cell completed 4.86 10\S\6/uL 3.73-5.22 [facility] 09/04/2020 07:00:00 PDT - Hemoglobin completed 13.5 g/dL 10.6-15.2 [facility] 09/04/2020 07:00:00 PDT - Hematocrit completed 41.1 % 34.8-47.7 [facility] 09/04/2020 07:00:00 PDT - MCV completed 84.6 fL 83.6-101.8 [facility] 09/04/2020 07:00:00 PDT - MCH completed 27.8 pg 25.6-32.7 [facility] 09/04/2020 07:00:00 PDT - MCHC completed 32.8 g/dL 29.5-33.1 [facility] 09/04/2020 07:00:00 PDT - RDW-CV completed 14.2 % 11.4-16.0 [facility] 09/04/2020 07:00:00 PDT - Platelets completed 407 10\S\3/uL 186-353 [facility] 09/04/2020 07:00:00 PDT - MPV completed 10.4 fL 9.6-12.0 [facility] 09/04/2020 07:00:00 PDT - Granulocytes % completed 66.5 % 42.50-73.20 [facility] [place] 09/04/[place] 07:00:00 PDT - Granulocytes # completed 4.55 10\S\3/uL 1.90-7.10 [facility] 09/04/2020 07:00:00 PDT - Lymphocytes % completed 21 % 18.2-47.4 [facility] 09/04/2020 07:00:00 PDT - Lymphocytes # completed 1.44 10\S\3/uL 1.16-3.18 [facility] 09/04/2020 07:00:00 PDT - Monocytes % completed 6.9 % 4.3-11.0 [facility] 09/04/2020 07:00:00 PDT - Monocytes # completed 0.47 10\S\3/uL 0.29-0.71 [facility] 09/04/2020 07:00:00 PDT - Eosinophil % completed 4.2 % 0.0-3.0 [facility]/04/2020 07:00:00 PDT - Eosinophil # completed 0.3 10\S\3/uL 0.0-0.3 [facility] 09/04/2020 07:00:00 PDT - Basophil % completed 1 % 0.1-1.1 [facility] 09/04/2020 07:00:00 PDT - Basophil # completed 0.07 10\S\3/uL 0.01-0.08 [facility] 09/04/2020 07:00:00 PDT - HIV Ab-Ag completed Non-Reactive Non-Reactive [facility] 09/04/2020 07:00:00 PDT - Sodium completed 133 mmol/L 133.0-144.0 [facility] 09/04/2020 07:00:00 PDT - Potassium completed 3.9 mmol/L 3.5-5.1 [facility] 09/04/2020 07:00:00 PDT - Chloride completed 104 mmol/L 97.0-109.0 [facility] 09/04/2020 07:00:00 PDT - Carbon Dioxide completed 25 mmol/L 15.3-40.2 [facility] 09/04/2020 07:00:00 PDT - Anion Gap (Calc) completed 7.9 mmol/L 0.0-25.0 [facility] 09/04/2020 07:00:00 PDT - Calcium completed 9.4 mg/dL 8.6-10.8 [facility] 09/04/2020 07:00:00 PDT - Glucose, Fasting completed 110 mg/dL 70.0-99.0 [facility] 09/04/2020 07:00:00 PDT - Alkaline Phosphatase, Serum completed 110 U/L 46.0-116.0 [facility] 09/04/2020 07:00:00 PDT - Total Protein, Serum completed 7 g/dL 5.4-8.4 [facility] 09/04/2020 07:00:00 PDT - Albumin, Serum completed 4.3 g/dL 3.5-5.7 [facility] [place] 09/04/2020 07:00:00 PDT - Globulin (Calc) completed 2.7 g/dL 1.8-5.0 [facility] [place] 09/04/2020 07:00:00 PDT - A/G Ratio (Calc) completed 1.59 Ratio 1.20-2.40 [facility] 09/04/2020 07:00:00 PDT - Bilirubin, Total completed 0.4 mg/dL 0.3-1.1 [facility] 09/04/2020 07:00:00 PDT - AST (SGOT) completed 16 U/L 14.0-53.0 [facility] 09/04/2020 07:00:00 PDT - ALT (SGPT) completed 17 U/L 10.0-72.0 [facility] 09/04/2020 07:00:00 PDT - Urea Nitrogen (BUN) completed 8 mg/dL 9.0-23.0 [facility] 09/04/2020 07:00:00 PDT - Creatinine, Serum completed 0.71 mg/dL 0.55-1.02 [facility] 09/04/2020 07:00:00 PDT - BUN/Creat Ratio (Calc) completed 11.3 Ratio 6.0-42.0 [facility] 09/04/2020 07:00:00 PDT - Osmolality (Calc) completed 265.35 mOsm/kg 275.00-295.00 [facility] 09/04/2020 07:00:00 PDT - eGFR (Calc) NonAfrican Kosovan completed 88.4 mL/min/1.73m\ S\2 >60.0 [facility] 09/04/2020 07:00:00 PDT - eGFR (Calc) completed 106.9 mL/min/1.73m\ S\2 >60.0 [facility] 09/04/2020 07:00:00 PDT - Hemoglobin A1c completed 6.1 % 3.9-5.7 [facility] 09/04/2020 07:00:00 PDT - Mean Plasma Glucose comple diana 140 mg/dL [facility] 09/04/2020 07:00:00 PDT - Folate completed 14.07 ng/mL >5 .38 [facility] 09/04/2020 07:00:00 PDT - Total Protein, Urine compl eted 16.2 mg/dL [facility] 09/04/2020 07:00:00 PDT - Creatinine, Urine complete d 41.77 mg/dL [facility] 09/04/2020 07:00:00 PDT - Total Protein/Creat Ratio (Calc) completed 0.4 mg/mg creatine <0.2 [facility] 09/04/2020 07:00:00 PDT - HIV-1 Antigen completed Non-Reactive Non-Reacti ve [facility] 09/04/2020 07:00:00 PDT - HIV-1 Antibody completed Non-Reactive Non-Reacti ve [facility] 09/04/2020 07:00:00 PDT - Cholesterol, Total completed 143 mg/dL <200.0 [facility] 09/04/2020 07:00:00 PDT - Triglycerides completed 164 mg/dL <150.0 [facility] [place] 09/04/2020 07:00:00 PDT - HDL, Cholesterol completed 39.8 mg/dL >40.0 [facility] 09/04/2020 07:00:00 PDT - CHOL/HDL Ratio (Calc) completed 3.59 Ratio <5.60 [facility] 09/04/2020 07:00:00 PDT - LDL (Calc) completed 70.4 mg/dL <130.0 [facility] 09/04/2020 07:00:00 PDT - VLDL (Calc) completed 32.8 mg/dL <40.0 [facility] [place] 09/04/2020 07:00:00 PDT - Cardiac Risk Factor (LDL/HDL) (Calc) completed 1.77 Ratio 3.03-5.37 [facility] 09/04/2020 07:00:00 PDT - T4, Free completed 1.07 ng/dL 0.65-1.29 [facility] 09/04/2020 07:00:00 PDT - HIV-2 Antibody completed Non-Reactive Non-Reacti ve [facility] 09/04/2020 07:00:00 PDT - Color completed Yellow [place] ow [facility] 09/04/2020 07:00:00 PDT - Appearance completed Clear [facility] 09/04/2020 07:00:00 PDT - pH completed 6 5.0-7.0 [facility] 09/04/2020 07:00:00 PDT - Specific [place] completed 1.005 1.002-1.030 [facility] [place] 09/04/2020 07:00:00 PDT - Glucose completed Negative Negative [facility] 09/04/2020 07:00:00 PDT - Ketones completed Negative Negative [facility] 09/04/2020 07:00:00 PDT - Blood completed 3+ Negative [facility] 09/04/2020 07:00:00 PDT - Protein completed Negative Negative [facility] 09/04/2020 07:00:00 PDT - Bilirubin completed Negative Negative [facility] 09/04/2020 07:00:00 PDT - Leukocyte Esterase completed Trace Negative [facility] [place] 09/04/2020 07:00:00 PDT - Nitrite completed Negative Negative [facility] 09/04/2020 07:00:00 PDT - Urobilinogen completed Negative Negative [facility] 09/04/2020 07:00:00 PDT - WBC completed 11-20 0-3 [facility] 09/04/2020 07:00:00 PDT - RBC completed TNTC 0-3 [facility] 09/04/2020 07:00:00 PDT - Epithelial Cells completed Rare None [facility] 09/04/2020 07:00:00 PDT - Bacteria completed Few None [facility] 09/04/2020 07:00:00 PDT - Ascorbic acid completed Negative Negative [facility] Vital Signs Effective DateTime Start Observation Code Observation Name Status Result Value Informa nt Social History Effective DateTime Start Observation Code Observation Name Status Result Value Informa nt Note Effective Date Clinical Note Code Clinical Note Title Status Author ID Author Informant Immunizations Effective Date Vaccine Code Vaccine Name Status Inform ant 07/13/2021 08:00:00 PDT 208 - completed [facility] 11/10/2020 07:00:00 PDT 208 - completed [facility] 10/20/2020 07:00:00 PDT 208 - completed [facility] 08/14/2016 08:00:00 PDT 150 Influenza, injectable, quadrivalent, preservative free completed [facility] 05/26/2014 08:00:00 PDT 141 Influenza, seasonal, injectable completed [facility]
--- OUTSIDE RECORDS SUMMARY | 2022-05-13 11:15 | XMS_ITS | Continuity of Care Document ---
Author Organization [facility] 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 Role Phone Lucy Miller MD Unavailable Unavailable Allergies, Adverse Reactions, Alerts Substance Reaction Status Criticality No Known Allergies Active No Inform ation Medications Medication Instructions Dosage Effective Dates (start - stop) Status Comments amlodipine 5 mg tablet take 1 tablet by oral route every day 5 MG - Active levothyroxine 75 mcg tablet take 1 tablet by oral route every day 75 MCG - Active aspirin 81 mg tablet,delayed release take 1 tablet by oral route every day 81 MG - Active gemfibrozil 600 mg tablet take 1 tablet by oral route 2 times every day 30 minutes before morning and evening meal 600 MG - Active nitroglycerin 0.[address] 1 tablet by sublingual route every 5 minutes as needed for chest pain. Do not exceed 3 doses in 15 minutes. 0.4 MG - Active Procedures Procedure Date Cardiovascular stress test Office/outpatient visit est Cardiovascular stress test Office/outpatient visit new Advance Directives Directive Yes / No Effective Date File Name No Information Encounters Encounter Description Practice Location Reason(s) For Visit Diagnoses Date Provider [facility] [address] [place], [place] [address], [id number], tel:[phone] [facility] Other chest pain 2 Angela Ayala . [address] [place] [address], [place], [address], [place]. tel: [phone] Office/outpa tient visit mal [facility] [address] [place] [address], [id number], tel:[phone] Marily Miller Telehealth Visit Follow up (chief complaint) Other chest painEssential (primary) hypertension May- 2202 0 Bite Asha. [address] [place] [address], [facility], . tel: [phone] [facility] [address] [place] [address], [id number], tel:[phone] [facility] Chest tightness Dec-0 3202 0 Angela Ayala . [address] [place] [address], [facility], . tel: [phone] Office/outpa tient visit new [facility] [address] [place] [address], [id number], tel:[phone] [facility] Consultation (chief complaint) Chest tightnessDizzinessEssenti al hypertensionElevated lipidsFamily history of heart disease 0202 0 Bite Asha. [address] [place] [address], [id number], . tel: [phone] Family History Family Member Type Diagnosis Age At Onset Mother Problem Diabetes mellitus Brother Problem CABG Father Problem Myocardial infarction Mother Problem raised blood lipids Mother Problem hypertension Mother Problem Heart Disease Paternal uncle Problem stroke Paternal uncle Problem Myocardial infarction Maternal grandmother Problem Cancer, brain Payers Payer name Insurance type Covered libertarian ID Authoriza tion(s) [facility] [place] Care Covered [facility] [id number] Social History Type Description Quantity Date Captured Comments Sex Female Smoking Status No Information Gender Identity Female Chief Complaint And Reason For Visit No Information Plan Of Treatment Date Type Action Status Goal Lipid panel. Due on 020 due Goal Td vaccine. Due on 20 due Goal PAP. Due on due Goal Tdap. Due on due Goal Pap/HPV testing. Due on due Goal Mammogram. Due on 0 due Goal HPV. Due on due Goal Influenza vaccine. Due on due Goal Depression screening. Due on due Goal Td vaccine. Due on due Goal Pap/HPV testing. Due on due Goal Tdap. Due on due Goal HPV. Due on due Goal Influenza vaccine. Due on due Goal PAP. Due on due Goal Mammogram. Due on 0 due Goal Lipid panel. Due on due Goal Depression screening. Due on due Goal Mammogram. Due on 0 due Goal PAP. Due on due Goal Influenza vaccine. Due on due Goal HPV. Due on due Goal Tdap. Due on due Goal Pap/HPV testing. Due on due Goal Lipid panel. Due on due Goal Depression screening. Due on due Goal Td vaccine. Due on due Referral Ordered: Cardiovascular stress test ordered History Of Present Illness Encounter Date Complaint History Of Prese nt Illness Follow up Ruthann is a 44 ye ar old female patient with a past medical history of hypothyroid, Hypertension and Hyperlipidemia. Patient denies any chest pain, shortness of breath or edema. Telehealth visit, telephone consultation due to current clinical guidelines related to COVID [address] of face to face encounter, the visit is medically necessary, Patient presents for a follow up visit on stress test which is normal, her chest symptoms are better, she has appt for echo in [facility] recent hospital visitsB/P: 125/74(Verbal consent given by Ms. Ruthann Dale to conduct a Phone visit with Asha Quinones) / [phone] Consultation Ruthann is a 44 ye ar old female patient with a past medical history of hypothyroid, Hypertension and Hyperlipidemia. Patient denies any edema. Patient presents for a Consultation visit for chest pain, referred by Dr. LainezPatient states about 1 month ago she started to experience some chest tightness/ Pressure and palpitations when she feels stress/Anxiety it comes and goes varies in duration no radiation. Patient also complains of dizziness with lightheadedness when b/p is elevated. And shortness of breath only when she has palpitations.about a month ago, eating dinner, felt heat going up to head, then felt lightheaded, she checked BP and 179 systolic, no sweating, went to [facility], noted ECG unremarkable, CXR unremarkablemom heart disease, dad CT, brother CABG Instructions Date Instruction Additional Infor cristiano No Information Assessments Type Assessment Date No Information
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
--- NOTE | 2025-02-28 14:41 | HO.NEPHOV ---
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: No Accompanied by: Self / Same As Patient Allergies No Known Allergies Allergy (Verified 02/28/25 14:46) Medication List - Last Reconciled 02/28/25 by Lucian Dixon MD amlodipine 5 mg PO DAILY aspirin 81 mg PO DAILY fenofibrate nanocrystallized 145 mg PO DAILY gabapentin 300 mg PO DAILY PRN levothyroxine 88 mcg PO DAILY lisinopril 2.5 mg PO DAILY nitroglycerin 0.3 mg sublingual PRN pantoprazole 40 mg PO DAILY PRN rosuvastatin 10 mg PO BEDTIME HPI Comments Details: 47 yr old woman with MPGN treated with immunosuppression 15 yrs ago anf has been in remission Recent urine Pro: cr was 2700 and prompted further work up All serologies were negative UA showed no protein 02/28/25 The patient is a 49-year-old female presenting with h/o GN here for follow up Premenopausal symptoms include occasional breathing difficulties, attributed to hormonal changes. No hormone replacement therapy advised. History of elevated blood glucose levels, recent reading 116 mg/dL, non-fasting. Previous reading 98 mg/dL, HbA1c 6.1%, close to prediabetes. Dietary changes reduced HbA1c to 5.5%. Creatinine levels fluctuating, current 1.1 mg/dL, previously 0.86 and 0.82 mg/dL. Advised to maintain hydration. Medical History: - History of elevated blood glucose levels - Fluctuating creatinine levels Medications: - Lisinopril 2.5 mg for hypertension - Amlodipine 5 mg for hypertension - Cholesterol medication - Gabapentin - Aspirin Social History: - Dietary changes: Eliminated grains, sugars, and potatoes to manage blood glucose levels. - Family member with diabetes: is diabetic, influencing dietary habits. Family History: - has diabetes Diagnostic Results: - Labs: Blood glucose 116 mg/dL (non-fasting), previous 98 mg/dL - Labs: Creatinine 1.1 mg/dL, previous 0.86 and 0.82 mg/dL - Urinalysis: No proteinuria PFSH Social History Alcohol intake: never Patient Tobacco Use Status: Never used Tobacco Physical Exam Vital Signs: Last Vital Signs Pulse 76 02/28/25 14:43 BP 112/74 02/28/25 14:43 Pulse Ox 98 02/28/25 14:43 Oxygen Delivery Method Room Air 02/28/25 14:43 BMI result Body Mass Index 32.0 Awake. Comfortable. Neck is supple. Mucosa moist. Lungs bilateral scattered rhonchi. Heart S1-S2 heard no gallop. Abdomen soft. Extremities no edema. No involuntary movements. No myoclonus. 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
[2025-02-28 14:43] VITALS: BP 112/74; PULSE 76; O2SAT 98; BMI 32.0
--- OUTSIDE RECORDS SUMMARY | 2025-02-28 16:57 | XMS_ITS | Encounter Summary ---
Author Organization [facility] Address [address] [place] [address] Phone Care Team Providers Care Lunchroom Aide Name Role Phone Unavailable Primary Care Provider Unavailabl e Encounter Details Date Type Department Care Team (Late st Contact Info) Description 09/27/2020 Orders Only [facility] [address] [facility] [address] [place] [address] Glomerular disorder in diseases classified elsewhere Social History Tobacco Use Types Packs/Day Years Used Date Smoking Tobacco: Never Alcohol Use Standard Drinks/Week Comments No 0 (1 standard drink = 0.6 oz pur e alcohol) Comments Unknown Sex and Gender Information Value Date Recorded Sex Assigned at Not on file Legal Sex Female 5:12 PM EST Gender Identity Not on file Sexual Orientation Not on file documented as of this encounter Plan of Treatment Not on file documented as of this encounter Visit Diagnoses Diagnosis Glomerular disorder in diseases classified elsewhere documented in this encounter
--- OUTSIDE RECORDS SUMMARY | 2025-02-28 16:57 | XMS_ITS | Clinical Summary ---
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 Role Phone Unavailable Primary Care Provider Unavailabl e Allergies Active Allergy Reactions Criticality Noted Date Comments Gabapentin Other (see comments) 09/02/2018 Medications amLODIPine (NORVASC) 5 MG tablet Take 5 mg by mouth 1 (one) time each day Active nitroglycerin (NITROSTAT) 0.4 MG SL tablet if needed Active aspirin (ST ANNEL) 81 MG EC tablet Take 81 mg by mouth 1 (one) time each day Active lisinopril 2.5 MG tablet Take 2.5 mg by mouth 1 (one) time each day 05/27/2022 Active levothyroxine (SYNTHROID, LEVOTHROID) 88 MCG tablet Take 88 mcg by mouth 1 (one) time each day 12/12/2022 Active fenofibrate (TRICOR) 145 MG tablet Take 145 mg by mouth 1 (one) time each day 12/11/2022 Active rosuvastatin (CRESTOR) 10 MG tablet Take 10 mg by mouth 1 (one) time each day 12/12/2022 Active Active Problems Problem Noted Date Diagnosed Date 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 02/07/2021 Proteinuria 02/07/2021 Chest pain at rest 05/28/2017 01/29/2023 Family History Medical History Relation Comments Heart disease Father Diabetes Mother Heart disease Sibling Relation Status Comments Father Unknown Mother Unknown Sibling Social History Tobacco Use Types Packs/Day Years Used Date Smoking Tobacco: Never Smokeless Tobacco: Never Tobacco Cessation:Counseling Given: Not Answered Alcohol Use Standard Drinks/Week Comments No 0 (1 standard drink = 0.6 oz pur e alcohol) Comments Unknown Sex and Gender Information Value Date Recorded Sex Assigned at Not on file Legal Sex Female 5:12 PM EST Gender Identity Not on file Sexual Orientation Not on file Last Filed Vital Signs Vital Sign Reading Time Taken Comments Blood Pressure 114/72 06/05/2022 3:45 PM EST Pulse 84 06/05/2022 3:45 PM EST Temperature - - Respiratory Rate - - Oxygen Saturation - - Inhaled Oxygen Concentration - - Weight 73.9 kg (163 lb) 01/29/2023 1:14 PM EDT Height 157.5 cm (5' 2 ) 01/15/2019 12:00 PM EDT Body Mass Index 29.81 01/15/2019 12:00 PM EDT Plan of Treatment Health Maintenance Due Date Last Done Comments Breast Cancer Screening 1975 Hepatitis B Vaccine (1 of 3 - 19+ 3-dose series) 12/28 Pneumococcal Vaccine: 50+ Years (1 of 2 - PCV) 993 Colorectal Cancer Screening: Annual FOBT 2022 Colorectal Cancer Screening: Colonoscopy 2022 Colorectal Cancer Screening: Sigmoidoscopy 2022 Influenza Vaccine (#1) 2025
== END 2025-02-28 14:57 | disposition home or self-care (01) ==
LOC: HO.HKA 14:32
PROVIDERS: PCP Internal Medicine; Visit Provider Internal Medicine Hypertension Specialist
DX: N05.9 Unspecified nephritic syndrome with unspecified morphologic changes (principal)
CPT/HCPCS: 99212